=== PATIENT | female | born 1990 | race Caucasian/White ===

== ENCOUNTER 2020-07-26 21:18 | Emergency (ER) | payer OTHER ==
[~2020-07-26] VITALS: Ht 162.6 cm; Wt 56.7 kg
[2020-07-26] MEDS ORDERED: DIPHENHIST50 MG PO (21:27)
[2020-07-26] MEDS ORDERED: VALACYCLOVIR500 MG PO (21:27)
[2020-07-26] MEDS ORDERED: EPIPEN0.3 MG/0.1 IM (21:28)
[2020-07-26] MEDS ORDERED: RAYOS5 MG PO (21:28)
[2020-07-26] MEDS ORDERED: PREDNISONE50 MG PO (22:55)
[2020-07-26] MEDS ORDERED: EPIPEN 2-P0.3 MG/0.3 IM (22:55)
[2020-07-26 23:23] VITALS: BP 106/61
== END 2020-07-26 23:24 | disposition home or self-care (01) ==
LOC: ER 21:18
DX: T78.07XA Anaphylactic reaction due to milk and dairy products, initial encounter (principal); R06.02 Shortness of breath; R22.0 Localized swelling, mass and lump, head; Z79.899 Other long term (current) drug therapy; Z91.011 Allergy to milk products